=== PATIENT | female | born 2000 | race American Indian/Alaskan Native ===

== ENCOUNTER 2021-01-13 10:53 | Inpatient (IN) | payer BC, OTHER ==
[2021-01-13] MEDS ORDERED: OXYTOCIN 10 UNIT/1 ML INJ IM PRN (11:11)
[2021-01-13] MEDS ORDERED: METHYLERGONOVINE MALEATE 0.2 MG/ML VIAL IM PRN (11:11)
[2021-01-13] MEDS ORDERED: LOPERAMIDE 2 MG CAP PO PRN (11:11)
[2021-01-13] MEDS ORDERED: CARBOPROST TROMETHAMINE 250 MCG/1 ML INJ IM PRN (11:11)
[2021-01-13] MEDS ORDERED: miSOPROStol 200 MCG TAB PR PRN (11:11)
[2021-01-13] MEDS ORDERED: LIDOCAINE (2%) 20 MG/1 ML VIAL 20 ML MDV INFILTRATI NR (11:11)
--- NOTE | 2021-01-13 11:16 | History and Physical Report ---
History of Present Illness Date of examination: 01/13/21 Date of admission: 01/13/21 Chief complaint: Contractions. History of present illness: 20 year old presents to L&D with complaint of contractions and leaking of green fluid from vagina. States water started leaking at 10:00 AM today. Patient received care at [facility] and records are available. LMP 04/08/2020. EDC 01/13/2021. significant for the following: anemia, anxiety and depression (was taking Wellbutrin but stopped this), late transfer of care from [facility], trichomonas (treated and SUSAN negative). labs are as follows: O+, antibody screen negative, rubella immune, hepatitis B surface antigen negative, RPR nonreactive, HIV negative, hemoglobin electrophoresis AA, gonorrhea negative, chlamydia negative, trichomonas positive/negative, 1 hour sugar test 121, GBS negative. Past History Past Medical History: other (anemia, depression, anxiety) [facility] History: chlamydia (prior to , treated and cured), trichomonas (during , treated and cured) Family/Genetic History: none Social history: single, lives with family, full code. denies: smoking, alcohol abuse, prescription drug abuse, IV drug use - Obstetrical History Expected Date of Delivery: 01/13/21 Actual Gestation: 40 Week(s) 0 Day(s) : 1 Para: 0 Hx # Term Pregnancies: 0 Number of Pregnancies: 0 Spontaneous Abortions: 0 Induced : 0 Number of Living Children: 0 Medications and Allergies Allergies Allergy/AdvReac Type Severity Reaction Status Date / Time No Known Allergies Allergy Verified 01/13/21 11:09 Home Medications Medication Instructions Recorded Confirmed Last Taken Type One Daily Tablet 1 tab PO DAILY 01/13/21 01/13/21 1 Day Ago History ~01/12/21 Active Meds: Active Medications Carboprost Tromethamine (Carboprost Tromethamine 250 Mcg/1 Ml Inj) 250 mcg IM ONCE PRN PRN Reason: Uterine Bleeding Ephedrine Sulfate (Ephedrine Sulfate 50 Mg/1 Ml Inj) 10 mg IV Q2M PRN PRN Reason: Hypotension Lactated Ringer's (Lactated Ringers) 1,000 mls @ 125 mls/hr IV DIRECT NICHO Oxytocin/Sodium Chloride (Pitocin/Ns 30 Unit/500ml) 30 units in 500 mls @ 40 mls/hr IV TITR NICHO; Protocol Loperamide HCl (Loperamide 2 Mg Cap) 2 mg PO ONCE PRN PRN Reason: give with Hemabate Mineral Oil (Mineral Oil 30 Ml Oral Liqd) 30 ml PO QHS PRN PRN Reason: Constipation Oxytocin (Oxytocin 10 Unit/1 Ml Inj) 10 unit IM ONCE PRN PRN Reason: Uterine Bleeding Terbutaline Sulfate (Terbutaline 1 Mg/1 Ml Inj) 0.25 mg SUB-Q ONCE PRN PRN Reason: Hyperstimulation/Hypertonicity Review of Systems All systems: negative (contractions and leaking of green fluid from vagina since 10:00 AM today) - Physical Exam Abdomen: Positive: normal appearance, soft. Negative: distention, tenderness, guarding, rigidity Genitourinary (Female): Positive: normal external genitalia, normal perenium. Negative: perineal/vulvar lesions Vagina: Positive: other (meconium stained amniotic fluid) Uterus: Positive: enlarged. Negative: tender Anus/Rectum: Positive: normal perianal skin Extremities: Negative: tenderness, edema - Obstetrical FHR: category 2 Uterine Contraction Monitor Mode: External Cervical Dilatation: 9 Cervical Effacement Percentage: 100 station: 0 Uterine Contraction Pattern: Regular Uterine Contraction Intensity: Strong/Firm Results All other labs normal. Assessment and Plan A: at 40 weeks gestation. Active advanced labor. GBS negative. P: Admit. EFM. Anticipate vaginal .
[2021-01-13] MEDS: LACTATED RINGERS 1,000 ML IV SCH ×4 (11:20→15:33)
[2021-01-13] MEDS: TERBUTALINE 1 MG/1 ML INJ SUB-Q PRN ×2 (11:30→13:38)
[2021-01-13] MEDS ORDERED: fentaNYL 100 MCG/2 ML INJ IV PRN (11:30)
[2021-01-13] MEDS ORDERED: ePHEDrine SULFATE 50 MG/1 ML INJ IV PRN ×2 (11:30→13:00)
[2021-01-13 11:54] LABS: Hematocrit 28.7 % (30.3-42.9); Hemoglobin 9.7 gm/dl (10.1-14.3); Mean Corpuscular HGB Conc 34 % (30-34); Mean Corpuscular Volume 76 fl (79-97); Platelet Count 353 K/mm3 (140-440); Red Blood Count 3.76 M/mm3 (3.65-5.03); Red Cell Distribution Width 17.4 % (13.2-15.2)
[2021-01-13] MEDS ORDERED: MINERAL OIL 30 ML ORAL LIQD PO PRN ×2 (12:00→22:00)
[2021-01-13] MEDS ORDERED: OXYTOCIN DRIP 30 UNITS/500 ML BAG IV SCH (12:00)
[2021-01-13] MEDS ORDERED: MINERAL OIL 30 ML ORAL LIQD ONE (12:04)
--- NOTE | 2021-01-13 12:42 | Anesthesia Consultation ---
Anesthesia Consult and Med Hx Date of service: 01/13/21 - Airway Anesthetic Teeth Evaluation: Good ROM Head & Neck: Adequate Mental/Hyoid Distance: Adequate Mallampati Class: Class I Intubation Access Assessment: Good - Pulmonary Exam CTA: Yes - Cardiac Exam Cardiac Exam: RRR - Pre-Operative Health Status ASA Pre-Surgery Classification: ASA2 Proposed Anesthetic Plan: Epidural - Pulmonary Hx Smoking: No Hx Asthma: No Hx Sleep Apnea: No - Cardiovascular System Hx Hypertension: No Hx Heart Attack/AMI: No Hx Angina: No - Central Nervous System Hx Seizures: No Hx Psychiatric Problems: Yes (Depression, Anxiety) - Gastrointestinal Hx Gastroesophageal Reflux Disease: No - Endocrine Hx Renal Disease: No Hx Liver Disease: No Hx Insulin Dependent Diabetes: No Hx Non-Insulin Dependent Diabetes: No Hx Hypothyroidism: No Hx Hyperthyroidism: No - Hematic Hx Anemia: Yes Hx Sickle Cell Disease: No - Other Systems Hx Alcohol Use: Yes (Occasionally)
--- NOTE | 2021-01-13 12:44 | Progress Note ---
Labor Epidural - Labor Epidural Start Time: 12:26 Stop Time: 12:36 Performed by:: REAL RAMIREZ (Bela Merlos [facility]) Procedure: Patient is requesting epidural for labor and pain. H&P, labs were reviewed. Patient IDed, H&P reviewed, all questions and concerns were answered, and consent was signed. Timeout was performed at bedside. Patient in sitting position. Sterile prep and drape was performed. 3ml of 1% lidocaine skin wheal at L[3]- L [4]. 18-gauge anahi epidural needle was advanced to loss of resistance with air technique 6.5cm. POSITIVE CSF negative blood. Epidural catheter advanced to [11] centimeters. [POSITIVE] Aspiration of CSF [negative] test dose. Sterile dressing applied. Patient tolerated procedure. RN informed of intrathecal cath, cath labeled, orders adjusted accordingly.
[2021-01-13] MEDS ORDERED: ONDANSETRON 4 MG/2 ML INJ IV PRN (13:00)
[2021-01-13] MEDS ORDERED: LACTATED RINGERS 250 ML IV SOLN IV SCH (13:00)
[2021-01-13] MEDS ORDERED: NalbUPHINE 10 MG/1 ML INJ IV PRN (13:00)
[2021-01-13] MEDS ORDERED: NALOXONE 2 MG/2 ML INJ IV PRN (13:00)
[2021-01-13] MEDS ORDERED: diphenhydrAMINE 50 MG/ML VIAL IV PRN (13:00)
[2021-01-13] MEDS ORDERED: fentaNYL-BUPIV 2 MCG/ML-0.125% 200 MCG/100 ML BAG EPIDURAL SCH (13:00)
[2021-01-13] MEDS ORDERED: SODIUM CHLORIDE 0.9% 1000 ML 1,000 ML ONE (16:05)
[2021-01-13] MEDS ORDERED: CALCIUM CARBONATE 500 MG TAB CHEW PO ONE (16:30)
[2021-01-13] MEDS ORDERED: diphenhydrAMINE 25 MG CAP PO PRN (17:37)
[2021-01-13] MEDS ORDERED: LANOLIN/ZINC/DIMETHICONE (LANSINOH) 7 GM TP PRN (17:37)
[2021-01-13] MEDS ORDERED: WITCH HAZEL/ GLYCERIN PAD TP PRN (17:37)
--- NOTE | 2021-01-13 17:44 | Procedure Note ---
OB Delivery Note - Delivery Date of Delivery: 01/13/21 Surgeon: CRIS STILES Estimated blood loss: 300cc - Vaginal Delivery presentation: vertex Delivery position: OP Intrapartum events: none, meconium Delivery induction: none Delivery monitor: external FHT, external uterine Route of delivery: Delivery placenta: spontaneous Delivery cord: 3 umbilical vessels Episiotomy: none Delivery laceration: 2nd degree Delivery repair: vicryl Anesthesia: local, epidural Delivery comments: Spontaneous vaginal delivery at 16:26 of liveborn female weighing 8 lb. 6.4 oz. over 2nd degree perineal laceration with apgars of 8/9. Dr. Patrick called to attend delivery due to deep variable FHR decelerations and possible need for vaccuum assistance. But as Dr. Patrick came into room, patient was delivering. Baby was OP at delivery; was atraumatic. Baby placed skin to skin with mom immediately after . NICU present for delivery due to meconium. Baby was vigorous at and cried spontaneously. Bulb suctioned. Dried with warm towels and stimulated. 3 vessel cord double clamped and cut and baby taken to radiant warmer for further suctioning. Cord blood obtained. Spontaneous delivery of intact placenta and membranes by mcgarry mechanism. EBL 300 cc. Pitocin to IV fluids after delivery of placenta. Fundus firm and midline. 2nd degree perineal laceration repaired with 2-0 vicryl in usual sterile fashion. No other lacerations noted. Vaginal sweep negative. Sponge count correct. Mother and baby stable.
[2021-01-13] MEDS: IBUPROFEN 600 MG TAB PO SCH (18:01)
[2021-01-13] MEDS: DOCUSATE SODIUM 100 MG CAP PO SCH (22:03)
[2021-01-14] MEDS: HYDROcodone/ACETAMINOPHEN 5-325 MG TAB PO PRN ×2 (05:43→15:56)
[2021-01-14] MEDS: FERROUS SULFATE 325 MG TAB PO SCH (11:02)
[2021-01-14] MEDS: DOCUSATE SODIUM 100 MG CAP PO SCH ×2 (11:02→21:35)
--- NOTE | 2021-01-14 11:19 | Progress Note ---
Assessment and Plan PT DOING WELL. Subjective - Subjective Date of service: 01/14/21 Principal diagnosis: 1 DAY PP Patient reports: appetite normal, voiding normally, pain well controlled, ambulating normally : doing well Objective - Vital Signs Latest vital signs: Vital Signs Temp Pulse Resp BP BP Pulse Ox 01/14/21 07:50 97.9 F 71 20 112/70 99 01/14/21 04:35 97.8 F 75 20 133/81 100 01/14/21 00:20 98.4 F 74 20 134/79 100 01/13/21 19:05 98.9 F 82 19 124/80 100 01/13/21 18:29 96 H 131/75 01/13/21 18:26 88 100 01/13/21 18:21 91 H 100 01/13/21 18:16 105 H 100 01/13/21 18:14 93 H 135/74 01/13/21 18:11 89 100 01/13/21 18:06 100 H 100 01/13/21 18:01 105 H 100 01/13/21 17:59 99 H 132/67 01/13/21 17:56 117 H 99 01/13/21 17:51 100 H 100 01/13/21 17:46 101 H 100 01/13/21 17:44 95 H 141/67 01/13/21 17:41 101 H 100 01/13/21 17:36 106 H 100 01/13/21 17:31 107 H 98 01/13/21 17:29 100 H 134/63 01/13/21 17:26 103 H 100 01/13/21 17:21 108 H 100 01/13/21 17:16 112 H 100 01/13/21 17:14 110 H 134/67 01/13/21 17:11 104 H 100 01/13/21 17:06 131 H 100 01/13/21 17:02 97.8 F 01/13/21 17:01 121 H 100 01/13/21 16:59 123 H 148/90 01/13/21 16:56 123 H 100 01/13/21 16:51 119 H 100 01/13/21 16:46 116 H 100 01/13/21 16:44 117 H 141/66 01/13/21 16:41 113 H 100 01/13/21 16:36 104 H 100 01/13/21 16:31 105 H 100 01/13/21 16:29 127 H 149/78 01/13/21 16:26 151 H 100 01/13/21 16:20 128 H 100 01/13/21 16:15 151 H 163/93 100 01/13/21 16:10 118 H 100 01/13/21 16:05 102 H 100 01/13/21 16:02 110 H 142/65 01/13/21 16:00 117 H 100 01/13/21 15:59 92 H 221/100 01/13/21 15:55 104 H 100 01/13/21 15:50 119 H 100 01/13/21 15:46 110 H 140/70 01/13/21 15:45 110 H 100 01/13/21 15:40 104 H 100 01/13/21 15:35 105 H 100 01/13/21 15:30 104 H 100 01/13/21 15:29 104 H 117/70 01/13/21 15:25 114 H 100 01/13/21 15:20 103 H 100 01/13/21 15:16 99 H 124/72 01/13/21 15:15 98 H 100 01/13/21 15:10 104 H 100 01/13/21 15:05 98 H 100 01/13/21 15:01 101 H 118/64 01/13/21 15:00 95 H 100 01/13/21 14:55 95 H 100 01/13/21 14:50 104 H 100 01/13/21 14:47 103 H 117/59 01/13/21 14:45 117 H 179/112 100 01/13/21 14:40 117 H 100 01/13/21 14:35 120 H 100 01/13/21 14:30 110 H 100 01/13/21 14:29 114 H 125/55 01/13/21 14:25 110 H 100 01/13/21 14:20 110 H 100 01/13/21 14:15 113 H 100 01/13/21 14:12 114 H 105/57 01/13/21 14:10 113 H 109/55 100 01/13/21 14:08 139 H 114/60 01/13/21 14:06 100 H 107/55 01/13/21 14:05 137 H 99 01/13/21 14:04 123 H 113/57 01/13/21 14:02 114 H 118/60 01/13/21 14:00 106 H 129/69 98 01/13/21 13:58 115 H 136/76 01/13/21 13:56 114 H 132/73 01/13/21 13:55 127 H 100 01/13/21 13:54 103 H 134/78 01/13/21 13:52 113 H 126/66 01/13/21 13:50 115 H 131/76 99 01/13/21 13:48 112 H 118/72 01/13/21 13:46 91 H 120/73 01/13/21 13:45 108 H 100 01/13/21 13:44 107 H 123/69 01/13/21 13:42 110 H 123/68 01/13/21 13:40 90 99 01/13/21 13:38 100 H 129/76 01/13/21 13:36 98 H 125/71 01/13/21 13:35 95 H 98 01/13/21 13:34 108 H 126/72 01/13/21 13:32 104 H 119/66 01/13/21 13:30 105 H 131/76 100 01/13/21 13:28 101 H 128/75 01/13/21 13:26 100 H 119/73 01/13/21 13:25 97 H 100 01/13/21 13:24 79 115/70 01/13/21 13:22 86 122/72 01/13/21 13:20 90 124/77 100 01/13/21 13:18 98 H 114/73 01/13/21 13:16 87 108/66 01/13/21 13:15 94 H 100 01/13/21 13:14 92 H 110/70 01/13/21 13:12 103 H 117/71 01/13/21 13:10 105 H 119/63 100 01/13/21 13:08 101 H 134/71 01/13/21 13:06 88 128/60 01/13/21 13:05 94 H 100 01/13/21 13:04 97 H 126/56 01/13/21 13:02 97 H 138/65 01/13/21 13:00 89 120/69 100 01/13/21 12:58 83 125/72 01/13/21 12:56 94 H 114/59 01/13/21 12:55 96 H 100 01/13/21 12:54 96 H 116/61 01/13/21 12:52 90 119/57 01/13/21 12:50 97 H 100 01/13/21 12:48 96 H 124/56 01/13/21 12:47 93 H 139/60 01/13/21 12:45 93 H 100 01/13/21 12:44 105 H 130/66 01/13/21 12:42 86 136/67 01/13/21 12:40 102 H 145/68 99 01/13/21 12:38 93 H 135/83 01/13/21 12:36 91 H 132/79 01/13/21 12:35 101 H 98 01/13/21 12:34 104 H 130/85 01/13/21 12:30 98 H 99 01/13/21 12:25 110 H 72 L 01/13/21 12:24 108 H 73 L 01/13/21 12:19 112 H 100 01/13/21 12:14 97 H 100 01/13/21 12:09 97 H 100 01/13/21 12:04 95 H 100 01/13/21 11:59 97 H 100 01/13/21 11:54 93 H 100 01/13/21 11:49 99 H 100 01/13/21 11:44 104 H 100 01/13/21 11:39 101 H 100 01/13/21 11:34 86 100 01/13/21 11:33 74 132/71 01/13/21 11:29 74 100 Intake and Output 01/13/21 01/14/21 01/14/21 23:59 07:59 15:59 Intake Total 240 600 120 Output Total 600 650 Balance -360 -50 120 Intake: Oral 240 600 120 Output: Urine 600 650 Void 600 650 Other: Total, Intake Amount 240 120 120 Total, Output Amount 300 350 # Voids Void 1 1 Estimated Blood Loss 271 - Exam Abdomen: Present: normal appearance, soft Uterus: Present: normal, firm Extremities: Present: normal Incision: Present: normal, dry, intact - Labs Labs: Abnormal lab results 01/13/21 Range/Units 11:15 WBC 13.3 H (4.5-11.0) K/mm3 Hgb 9.7 L (10.1-14.3) gm/dl Hct 28.7 L (30.3-42.9) % MCV 76 L (79-97) fl MCH 26 L (28-32) pg RDW 17.4 H (13.2-15.2) %
[2021-01-14 11:32] LABS: Hematocrit 27.4 % (30.3-42.9); Hemoglobin 8.9 gm/dl (10.1-14.3); Mean Corpuscular HGB Conc 33 % (30-34); Mean Corpuscular Volume 79 fl (79-97); Platelet Count 292 K/mm3 (140-440); Red Blood Count 3.49 M/mm3 (3.65-5.03); Red Cell Distribution Width 17.2 % (13.2-15.2)
[2021-01-14] MEDS: IBUPROFEN 600 MG TAB PO SCH ×2 (13:01→23:35)
--- NOTE | 2021-01-14 14:46 | Post Anesthesia Evaluation ---
- Post Anesthesia Evaluation Patient Participated: Yes Airway Patent: Yes Stable Respiratory Function: Yes Nausea/Vomiting: No Temp > 96.8F: Yes Pain Manageable: Yes Adequeate Hydration: Yes Anesthesia Complications: No Block Receding Appropriately: Yes Patient on Ventilator: No
[2021-01-15] MEDS: HYDROcodone/ACETAMINOPHEN 5-325 MG TAB PO PRN ×2 (01:00→12:20)
[2021-01-15] MEDS: FERROUS SULFATE 325 MG TAB PO SCH (11:15)
[2021-01-15] MEDS: DOCUSATE SODIUM 100 MG CAP PO SCH (11:15)
--- NOTE | 2021-01-15 14:56 | Progress Note ---
Assessment and Plan A: day 2 S/P . Anemia. P: Discharge patient home today. Advised patient to continue taking her vitamin and iron supplements at home. Advised patient to avoid intercouse, lifting, housework, driving. Advised patient to follow up at [facility] office in 2 weeks, sooner if needed. warning signs and signs of PP depression discussed. Patient voiced understanding of all instructions. Subjective - Subjective Date of service: 01/15/21 Principal diagnosis: 2 DAY PP Interval history: Doing well; patient requests discharge home today. Denies any symptoms of depression; has a history of depression in the past. Patient declines consult for this. Advised patient to come to [facility] office in 2 weeks for reassessment due to her history. Patient reports: appetite normal, voiding normally, pain well controlled, flatus, ambulating normally, no dizzy ambulation, no nauseated : doing well, bottle feeding Objective - Vital Signs Latest vital signs: Vital Signs Temp Pulse Resp BP BP Pulse Ox 01/15/21 08:16 98.0 F 62 17 120/72 99 01/15/21 00:35 20 01/15/21 00:00 98.4 F 75 20 136/78 100 01/14/21 15:43 98.2 F 81 20 108/64 98 Intake and Output 01/14/21 01/15/21 01/15/21 23:59 07:59 15:59 Intake Total 240 240 Balance 240 240 Intake: Oral 240 240 Other: Total, Intake Amount 240 240 # Voids Void 1 1 1 - Exam Cardiovascular: Present: Regular rate Lungs: Present: Clear to auscultation Abdomen: Present: normal appearance, soft. Absent: distention, tenderness, guarding, rigidity Uterus: Present: normal, firm, fundal height below umbilicus. Absent: bogginess, tenderness Extremities: Present: normal. Absent: tenderness, edema
--- NOTE | 2021-01-15 15:02 | Discharge Summary ---
Providers - Providers Date of Admission: 01/13/21 11:09 Date of discharge: 01/15/21 Attending physician: CARTER SWEET MD Primary care physician: [facility] Hospitalization Reason for admission: active labor Delivery: Laceration: 2nd degree Other procedures: none complications: none Discharge diagnosis: IUP at term delivered [place] baby: female Pertinent studies: Labs Hospital course: Stable hospital course Condition at discharge: Good Disposition: DC-01 TO HOME OR SELFCARE - Discharge Diagnoses (1) Term delivered Status: Acute (2) Anemia Status: Acute Plan - Provider Discharge Summary Activity: routine, no sex for 6 weeks, no heavy lifting 4 weeks, no strenuous exercise Diet: routine Instructions: routine Additional instructions: Continue taking your vitamins and iron supplements at home. Follow up at [facility] in 2 weeks. Call your doctor immediately for: * Fever > 100.5 * Heavy vaginal bleeding ( >1 pad per hour) * Severe persistent headache * Shortness of breath * Reddened, hot, painful area to leg or breast - Follow up plan Follow up: CRIS STILES CNM [Advanced Practice Nurse] - 14 Days
[2021-01-15 19:57] VITALS: BP 116/84
== END 2021-01-15 16:53 | disposition home or self-care (01) | DRG 807 ==
LOC: TRG 10:53 → APU 10:55 → TRG 11:08 → LD 11:09 → OB 18:46
PROC: 10E0XZZ Delivery of Products of Conception, External Approach (ICD-10-PCS; principal; 2021-01-13)
PROC: 0KQM0ZZ Repair Perineum Muscle, Open Approach (ICD-10-PCS; 2021-01-13)
PROC: 3E0R3BZ Introduction of Anesthetic Agent into Spinal Canal, Percutaneous Approach (ICD-10-PCS; 2021-01-13)
PROC: 00HU33Z Insertion of Infusion Device into Spinal Canal, Percutaneous Approach (ICD-10-PCS; 2021-01-13)
DX: O77.0 Labor and delivery complicated by meconium in amniotic fluid (principal); Z37.0 Single live birth; O76 Abnormality in fetal heart rate and rhythm complicating labor and delivery; Z20.822 Contact with and (suspected) exposure to COVID-19; F41.9 Anxiety disorder, unspecified; O64.0XX0 Obstructed labor due to incomplete rotation of fetal head, not applicable or unspecified; F32.9 Major depressive disorder, single episode, unspecified; O90.81 Anemia of the puerperium; O70.1 Second degree perineal laceration during delivery; O99.344 Other mental disorders complicating childbirth; Z3A.40 40 weeks gestation of pregnancy
CPT/HCPCS: 36415; 85027; 86592; 86850; 86900; 86901; G0378; J2590; J3105; J7030; J7120; U0003

== ENCOUNTER 2021-01-25 15:10 | Emergency (ER) | payer BC, OTHER ==
--- NOTE | 2021-01-25 16:42 | Emergency Department Report ---
Blank Doc - Documentation Documentation: 20-year-old female that presents with headache and neck pain/stiffness. Patient stated symptoms all occurred after epidural last month and had a vaginal delivery. Denies any trauma or injuries. 1- This is a initial triage assessment/medical screening only. Full assessment and work-up will be completed once the patient is in proper hospital gown, ED bed and in a private room setting. This initial assessment/diagnostic orders/clinical plan/ treatment(s) is/are subject to change based on pt's health status, clinical progression and re-assessment by fellow clinical providers in the ED. Further treatment and workup at subsequent clinical providers discretion. Patient/guardians urged not to elope from ED as their condition may be serious if not clinically assessed and managed. 2-labs
[2021-01-25 17:12] LABS: Basophils # (Auto) 0.1 K/mm3 (0.0-0.1); Basophils % (Auto) 0.9 % (0.0-1.8); Eosinophils # (Auto) 0.6 K/mm3 (0.0-0.4); Eosinophils % (Auto) 8.6 % (0.0-4.3); Hematocrit 34.8 % (30.3-42.9); Hemoglobin 10.9 gm/dl (10.1-14.3); Lymphocytes # (Auto) 1.1 K/mm3 (1.2-5.4); Lymphocytes % (Auto) 17.2 % (13.4-35.0); Mean Corpuscular HGB Conc 31 % (30-34); Mean Corpuscular Volume 78 fl (79-97); Monocytes # (Auto) 0.2 K/mm3 (0.0-0.8); Monocytes % (Auto) 3.5 % (0.0-7.3); Platelet Count 548 K/mm3 (140-440); Red Blood Count 4.47 M/mm3 (3.65-5.03); Red Cell Distribution Width 18.9 % (13.2-15.2)
[2021-01-25 17:20] LABS: Alanine Aminotransferase 10 units/L (7-56); Albumin 4.4 g/dL (3.9-5); BUN/Creatinine Ratio 23; Blood Urea Nitrogen 18 mg/dL (7-17); Calcium 9.6 mg/dL (8.4-10.2); Hemolysis Index 7
--- NOTE | 2021-01-25 21:33 | Emergency Department Report ---
ED Headache HPI - General Chief Complaint: Headache Stated Complaint: HEADACHE Time Seen by Provider: 01/25/21 16:41 Source: patient, RN notes reviewed, old records Exam Limitations: no limitations - History of Present Illness Initial Comments: Patient is a 20-year-old female presents emergency room with complaints of headache for 1 week. Patient states that the headache started shortly after delivering her baby. Patient states she delivered a baby on January 13, 2021. Patient states that he was born healthy. Patient states she had an epidural and she had a headache ever since. Patient states she called her CONSTRUCTION PIT WORKER and they told her to come to the hospital. Patient's CONSTRUCTION [employer] is [employer]. Patient denies complications during the delivery. Patient denies visual changes. Patient denies fever and chills. Patient does states the headache is global. Patient states the pain is better with rest and lying down. Patient states the headache is worse with standing upright. Patient denies neck stiffness. Patient denies fever and chills. Patient denies cough. Patient denies chest pain or shortness of breath. Patient denies recent travel. Patient denies recent international travel. Patient denies exposure to the novel coronavirus. Patient denies sick contacts. Patient denies fever and chills. Patient denies cough. Patient denies diarrhea. Patient denies coming in contact with anybody with symptoms of the novel coronavirus. Timing/Duration: 1 week Quality: severe Head Injury Location: global Modifying Factors: improves with: movement, rest Associated Symptoms: denies: confusion, fatigue, facial pain, fever/chills, flushing, loss of consciousness, nausea/vomiting, nasal congestion, nasal drainage, numbness in legs/feet, rash, seizures, sinus infection, stiff neck, vision changes, weakness Allergies/Adverse Reactions: Allergies No Known Allergies Allergy (Verified 01/13/21 11:09) Home Medications: Ambulatory Orders One Daily Tablet 1 tab PO DAILY 01/13/21 ED Review of Systems ROS: Stated complaint: HEADACHE Other details as noted in HPI Constitutional: denies: chills, fever Eyes: denies: eye pain, eye discharge, vision change ENT: denies: ear pain, throat pain Respiratory: denies: cough, shortness of breath, wheezing Cardiovascular: denies: chest pain, palpitations Endocrine: no symptoms reported Gastrointestinal: denies: abdominal pain, nausea, diarrhea Genitourinary: denies: urgency, dysuria, discharge Musculoskeletal: denies: back pain, joint swelling, arthralgia Skin: denies: rash, lesions Neurological: as per HPI, headache. denies: weakness, paresthesias Psychiatric: denies: anxiety, depression Hematological/Lymphatic: denies: easy bleeding, easy bruising ED Past Medical Hx - Past Medical History Previous Medical History?: No Hx Hypertension: No Hx Heart Attack/AMI: No Hx Diabetes: No Hx Deep Vein Thrombosis: No Hx Liver Disease: No Hx Renal Disease: No Hx Sickle Cell Disease: No Hx Seizures: No Hx Asthma: No Hx HIV: No - Surgical History Past Surgical History?: No - Family History Family history: no significant - Social History Smoking Status: Never Smoker Substance Use Type: None - Medications Home Medications: Home Medications Medication Instructions Recorded Confirmed Last Taken Type One Daily Tablet 1 tab PO DAILY 01/13/21 01/13/21 1 Day Ago History ~01/12/21 ED Physical Exam - General Limitations: No Limitations General appearance: alert, in no apparent distress - Head Head exam: Present: atraumatic, normocephalic - Eye Eye exam: Present: normal appearance, PERRL Pupils: Present: normal accommodation - ENT ENT exam: Present: mucous membranes moist - Neck Neck exam: Present: normal inspection, full ROM. Absent: tenderness, meningismus, lymphadenopathy, thyromegaly - Respiratory Respiratory exam: Present: normal lung sounds bilaterally. Absent: respiratory distress, wheezes, rales - Cardiovascular Cardiovascular Exam: Present: regular rate, normal rhythm. Absent: systolic murmur, diastolic murmur, rubs, gallop - GI/Abdominal GI/Abdominal exam: Present: soft, normal bowel sounds - Extremities Exam Extremities exam: Present: normal inspection - Back Exam Back exam: Present: normal inspection - Neurological Exam Neurological exam: Present: alert, oriented X3 - Psychiatric Psychiatric exam: Present: normal affect, normal mood - Skin Skin exam: Present: warm, dry, intact, normal color. Absent: rash ED Course Vital Signs 01/25/21 01/25/21 16:37 16:40 Temperature 98.6 F Pulse Rate 70 Respiratory 16 Rate Blood Pressure 124/81 O2 Sat by Pulse 100 Oximetry - Reevaluation(s) Reevaluation #1: Patient tolerated procedure well. Patient vital signs are reassuring. Patient given Dilaudid for procedural pain. Patient will lay flat for 1 hour as per anesthesia recommendations. Patient states her headache is resolved. Patient states he is only having minor back pain from the procedure. 01/25/21 23:50 Reevaluation #2: Patient states her pain has completely resolved. Patient states she feels much better. Patient that she is ready to go. Patient has laid flat for over 2 hours. I discussed all results and clinical findings with patient. I discussed plan of care with patient. Patient agrees with plan of care. Patient is stable for discharge. Patient will be discharged home. Patient given discharge instructions. Patient voiced understanding of discharge instructions. 01/26/21 02:10 - Consultations Consultation #1: I discussed the case with anesthesia. Anesthesia states they will see the patient. 01/25/21 22:49 Anesthesia is at bedside. 01/25/21 23:15 Anesthesia consented and performed a blood patch. Patient will need to lay flat for 1 hour. 01/25/21 23:49 ED Medical Decision Making - Lab Data Result diagrams: 01/25/21 16:45 01/25/21 16:45 - Radiology Data Radiology results: report reviewed CT head/brain wo con INDICATION: Severe headache. recent epidural. TECHNIQUE: Routine CT head. All CT scans at this location are performed using CT dose reduction for ALARA by means of automated exposure control. COMPARISON: None. FINDINGS: Intracranial: Soria-white matter differentiation is maintained. No intracranial hemorrhage. No extra axial collection. No hydrocephalus. No herniation. Sinuses: Paranasal sinuses and mastoid air cells are essentially clear. Orbits: Globes are intact. Calvarium: No acute fracture. IMPRESSION: 1. No acute intracranial abnormality. - Medical Decision Making Patient is a 20-year-old female that presents emergency room with complaints of a continued headache since she had her epidural at childbirth. Patient had no complications at delivery. Patient did not have a heavy hemorrhaging as well. Patient's vital signs are consistent with a post epidural spinal headache. I did a CT scan of the head to rule out acute intracranial findings and the CT scan of the head was negative for acute. Patient had labs done which were essentially unremarkable. I consulted anesthesiology and the LENS CEMENTER came over to the ER and placed a blood patch. Patient responded well. Patient's headache was immediately resolved after the patch was placed. Patient complained of procedural pain at the blood patch site and was given Dilaudid and patient responded well. Patient's discharge from the ER essentially asymptomatic. Patient given discharge instructions. Patient voiced understanding of discharge directions. Critical care time documented due to the multiple reassessments, prolonged time at the bedside, interpretation of diagnostics and labs. - Differential Diagnosis Spinal headache, epidural, headache, Critical Care Time: Yes Critical care time in (mins) excluding proc time.: 35 Critical care attestation.: If time is entered above; I have spent that time in minutes in the direct care of this critically ill patient, excluding procedure time. Critical Care Time: 35 minutes ED Disposition Clinical Impression: Spinal headache Headache Qualifiers: Headache type: unspecified Headache chronicity pattern: acute headache Intractability: intractable Qualified Code(s): R51.9 - Headache, unspecified Anemia Qualifiers: Anemia type: unspecified type Qualified Code(s): D64.9 - Anemia, unspecified Disposition: DC-01 TO HOME OR SELFCARE Is pt being admited?: No Does the pt Need Aspirin: No Condition: Stable Instructions: Form - Headache Record, Spinal Anesthesia and Epidural Anesthesia, Care After, Epidural Blood Patch for Spinal Headache Additional Instructions: Patient to follow-up with primary care in 2 to 3 days. Patient to follow-up with CONSTRUCTION PIT WORKER in 2 to 3 days. Patient to continue vitamin. Patient to rest. Patient to increase water. Patient to avoid strenuous exercise or heavy lifting until cleared by CONSTRUCTION PIT WORKER. Minimal activity. Patient to lay flat as much as possible at home. Patient to take Tylenol or ibuprofen as needed for pain. Patient to take meds as directed. Patient to return to the ER if condition worsens, changes or new symptoms arise. Referrals: VICTORINO RAYO MD [Primary Care Provider] - 2-3 Days Time of Disposition: 02:14
[2021-01-25] MEDS ORDERED: HYDROmorphone 1 MG/1 ML INJ IV ONE (23:49)
--- NOTE | 2021-01-26 00:06 | Progress Note ---
Subjective Date of service: 01/25/21 Principal diagnosis: PDPH Interval history: Pt seen in ER for headache, symptoms consistent with PDPH. Options discussed with patient, who opted for an epidural blood patch. Patient IDed, all questions and concerns were answered, and consent was signed. Timeout was performed at bedside. Patient in sitting position. Sterile prep and drape was performed. 3ml of 1% lidocaine skin wheal at L[3]- L [4]. 18- gauge Tuohy epidural needle was advanced to loss of resistance with air technique 4.5cm. Negative CSF negative blood. 20mL of blood drawn in a sterile fashion from the R AC by Marjorie (DEPARTMENT EDITOR). 16mL of blood injected through the Touhy needle, until patient reported increased pressure. Needle removed and band-aid applied. Patient tolerated procedure well, stated her headache had lessened. The patient was instructed to lay flat for 1-2 hours before discharge, and to limit activity when she is discharged. She was also instructed to return to the ER if her headache returned. Patient did c/o pressure sensation in her back, ER physician placed orders for pain meds. Objective - Constitutional Vitals: Vital Signs - 12hr 01/25/21 01/25/21 16:37 16:40 Temperature 98.6 F Pulse Rate 70 Respiratory 16 Rate Blood Pressure 124/81 O2 Sat by Pulse 100 Oximetry - Labs CBC & Chem 7: 01/25/21 16:45 01/25/21 16:45 Labs: Abnormal lab results 01/25/21 01/25/21 Range/Units 16:45 16:45 MCV 78 L (79-97) fl MCH 24 L (28-32) pg RDW 18.9 H (13.2-15.2) % Plt Count 548 H (140-440) K/mm3 Eos % (Auto) 8.6 H (0.0-4.3) % Lymph # (Auto) 1.1 L (1.2-5.4) K/mm3 Eos # (Auto) 0.6 H (0.0-0.4) K/mm3 BUN 18 H (7-17) mg/dL
--- NOTE | 2021-01-26 00:34 | Cat Scan Report ---
CT head/brain wo con INDICATION: Severe headache. recent epidural. TECHNIQUE: Routine CT head. All CT scans at this location are performed using CT dose reduction for A VICENTE by means of automated exposure control. COMPARISON: None. FINDINGS: Intracranial: Soria-white matter differentiation is maintained. No intracranial hemorrhage. No extra a xial collection. No hydrocephalus. No herniation. Sinuses: Paranasal sinuses and mastoid air cells are essentially clear. Orbits: Globes are intact. Calvarium: No acute fracture. IMPRESSION: 1. No acute intracranial abnormality. Signer Name: Juanito Parsons MD Signed: 01/26/2021 12:30 AM Workstation Name: [id number]
[2021-01-26 02:29] VITALS: BP 132/80
== END 2021-01-26 02:29 | disposition home or self-care (01) ==
LOC: ED 15:10
DX: O89.4 Spinal and epidural anesthesia-induced headache during the puerperium (principal); D64.9 Anemia, unspecified; R51.9 Headache, unspecified; Z79.899 Other long term (current) drug therapy
CPT/HCPCS: 36415; 70450; 80053; 85025; 96374; 99291; J1170